=== PATIENT | male | born 1995 | race Caucasian/White ===

== ENCOUNTER 2020-08-17 20:53 | Emergency (ER) | payer OTHER ==
[~2020-08-17] VITALS: Ht 182.9 cm; Wt 62.6 kg
[~2020-08-17 20:53] MED LIST: IBUPROFEN 800800 M1 PO; NAPROXEN 375 M375 M1; ULTRAM 50MG TAB50 MG PO
[2020-08-17 22:23] VITALS: BP 133/82
== END 2020-08-17 22:23 | disposition home or self-care (01) ==
LOC: M.ERS 20:53
DX: B34.9 Viral infection, unspecified (principal); J45.909 Unspecified asthma, uncomplicated; G43.909 Migraine, unspecified, not intractable, without status migrainosus; Z88.0 Allergy status to penicillin; Z88.2 Allergy status to sulfonamides; F17.200 Nicotine dependence, unspecified, uncomplicated; Z20.822 Contact with and (suspected) exposure to COVID-19